=== PATIENT | female | born 2000 | race African-American/Black ===

== ENCOUNTER 2024-04-25 10:14 | Emergency (ER) | payer SELFPAY ==
[2024-04-25 10:53] LABS: Bacteria/HPF None Seen HPF (None Seen); Bilirubin Negative (Negative); Blood, Urine Negative (Negative); CAUTI Indications for Culture Dysuria,urgency,freq; Clarity Clear (Clear); Glucose, Urine (Dipstick) Normal (Negative); Ketone, Urine Negative (Negative); Leukocyte Negative Leu/uL (Negative); Nitrite Negative (Negative); Pregnancy Test - Urine (BHCG) Negative (Negative); Pregu Control Background? CLEAR/WHITE (CLR/WHITE); Pregu Control Bar Appear? YES (CONTROL BAR); Protein, Urine (Dipstick) 10 mg/dL (Neg-Trace); RBC/HPF 0-3 HPF (0-3); Specific Gravity, Urine 1.031 (1.002-1.036); Urobilinogen Normal mg/dL (Less than 2); WBC/HPF 0-3 HPF (0-3); pH, Urine 6.5 (5.0-9.0)
[2024-04-25 10:56] LABS: Specific Gravity 1.031 (1.002-1.036); Urine Culture Reflex No No
[2024-04-25] MEDS ORDERED: Ketorolac Tromethamine 30 MG (1 mL) VIAL ONE (12:11)
== END 2024-04-25 12:41 | disposition home or self-care (01) ==
LOC: ERS 10:14
DX: M79.605 Pain in left leg (principal)
CPT/HCPCS: 81001; 81025; 96372; 99283; J1885

== ENCOUNTER 2024-07-07 10:17 | Emergency (ER) | payer OTHER ==
[2024-07-07] MEDS ORDERED: predniSONE 20 MG TAB ONE (11:58)
== END 2024-07-07 12:10 | disposition home or self-care (01) ==
LOC: ERS 10:17
DX: B34.9 Viral infection, unspecified (principal); J02.9 Acute pharyngitis, unspecified
CPT/HCPCS: 71046; 87081; 87428; 87430; J7512

== ENCOUNTER 2025-01-07 08:44 | Emergency (ER) | payer OTHER | END 2025-01-07 09:53 | disposition home or self-care (01) | LOC: ERS 08:44 | DX: J06.9 Acute upper respiratory infection, unspecified (principal); B97.89 Other viral agents as the cause of diseases classified elsewhere | CPT/HCPCS: 87428; 99283 ==

== ENCOUNTER 2025-04-27 05:06 | Emergency (ER) | payer OTHER ==
[2025-04-27] MEDS ORDERED: Albuterol 200 PUFF (6.7GM INHALER) ONE (06:07)
[2025-04-27] MEDS ORDERED: Dexamethasone 10 MG/ML VIAL ONE (06:07)
== END 2025-04-27 06:14 | disposition home or self-care (01) ==
LOC: ERS 05:06
DX: J06.9 Acute upper respiratory infection, unspecified (principal)
CPT/HCPCS: 87081; 87428; 87430; J1100